=== PATIENT | female | born 1980 | race Caucasian/White ===

== ENCOUNTER 2020-08-05 09:14 | Inpatient (IN) ==
[2020-08-05 10:27] LABS: BUN/Creatinine Ratio 30 (6-26); Blood Urea Nitrogen 21 mg/dL (6-20); Calcium 8.9 mg/dL (8.6-10.3); Carbon Dioxide 28 mEq/L (23-29); Chloride 101 mEq/L (98-107); Creatine Kinase 17123 Units/L (30-223); Glucose 153 mg/dL (70-105); Osmolality,Calculated 286 (280-300); Potassium 4.2 mEq/L (3.5-5.1); Sodium 135 mEq/L (136-145); eGFR For African Americans > 60 (> 60); eGFR For Non-African Americans > 60 (> 60)
[2020-08-05] MEDS ORDERED: 0.9 % Sodium Chloride 1,000 ML IVC SCH (10:30)
[2020-08-05] MEDS: 0.9 % Sodium Chloride 1,000 ML IVC SCH ×5 (10:42→22:28)
[2020-08-05 11:03] LABS: Basophils # 0.1 K/mcL (0.0-0.2); Basophils % 0.6 %; Eosinophils # 0.2 K/mcL (0.0-0.6); Eosinophils % 2.8 %; Hemoglobin 12.4 g/dL (11.5-15.4); Immature Granulocytes % 0.7 % (0-4); Lymphocytes # 2.4 K/mcL (0.6-4.6); Lymphocytes % 27.6 %; Mean Corpuscular HGB Conc 32.6 g/dL (31.6-35.5); Mean Corpuscular Hemoglobin 28.4 pg (28.0-33.3); Mean Corpuscular Volume 87.2 fL (83.0-100.0); Mean Platelet Volume 9.7 fL (9.4-12.4); Monocytes # 0.5 K/mcL (0.0-1.3); Monocytes % 5.9 %; Neutrophils # 5.4 K/mcL (1.6-8.9); Platelet Count 290 K/mcL (140-400); Red Blood Count 4.36 M/mcL (3.82-4.97); Red Cell Distribution Width 13.2 % (11.5-14.5); Segmented Neutrophils % 62.4 %; White Blood Count 8.7 K/mcL (4.3-11.1)
[2020-08-05] MEDS ORDERED: Acetaminophen 325 MG TABLET PO ONE (11:04)
[2020-08-05] MEDS ORDERED: Naloxone 0.4 MG/ML INJ IVP PRN (11:44)
[2020-08-05] MEDS ORDERED: Melatonin 3 MG TABLET PO PRN (11:44)
[2020-08-05] MEDS ORDERED: Ondansetron 4 MG/2 ML VIAL IVP PRN (11:44)
[2020-08-05] MEDS ORDERED: MOM Conc 10 ML UD.LIQ PO PRN (11:44)
[2020-08-05] MEDS ORDERED: Mag Hydrox/Al Hydrox/Simeth 30 ML UDC PO PRN (11:44)
[2020-08-05 12:54] LABS: Albumin 3.7 g/dL (3.5-5.7); Albumin/Globulin Ratio 1.1 (1.1-2.2); Bilirubin,Direct 0.1 mg/dL (0.0-0.2); Bilirubin,Indirect 0.3 mg/dL (0.0-1.0); Bilirubin,Total 0.4 mg/dL (0.3-1.0); Globulin 3.3 g/dL (2.4-3.5)
[2020-08-05 16:44] LABS: Bilirubin,Urine Negative (Negative); Blood,Urine Large (Negative); Clarity,Urine Clear (Clear); Color,Urine Yellow (Yellow); Glucose,Urine (UA) Normal (Normal); Ketones,Urine Negative (Negative); Leukocyte Esterase,Urine Negative (Negative); Nitrite,Urine Negative (Negative); Protein,Urine Negative (Neg-Trace); Urobilinogen,Urine Normal (Normal)
[2020-08-05 16:55] LABS: RBC,Urine 0-3 per hpf (0-3)
[2020-08-05 16:56] LABS: Mucus,Urine Few per lpf (None-Few); Squamous Epithelial Cell,Urine Few per hpf (None-Few)
[2020-08-05] MEDS: Insulin LISPRO 300 UNITS/3 ML VIAL SUBQ SCH ×2 (17:32→21:16)
[2020-08-05] MEDS ORDERED: *HR* Dextrose 50 % in Water (Vial) 50 ML VIAL IVP PRN (18:22)
[2020-08-05] MEDS ORDERED: D5% in Water 1,000 ML IVC PRN (18:22)
[2020-08-05] MEDS ORDERED: Dextrose Gel 15 GM/37.5 ML TUBE PO PRN ×2 (18:22)
[2020-08-05] MEDS: *HR* HYDROcodone/Acet 5/325 mg TABLET PO PRN (22:34)
[2020-08-06] MEDS: 0.9 % Sodium Chloride 1,000 ML IVC SCH ×4 (03:04→21:46)
[2020-08-06 04:02] LABS: Basophils % 0.4 %; Eosinophils # 0.2 K/mcL (0.0-0.6); Eosinophils % 2.3 %; Hematocrit 35.5 % (35.3-44.9); Hemoglobin 11.6 g/dL (11.5-15.4); Immature Granulocytes % 0.4 % (0-4); Lymphocytes % 18.5 %; Mean Corpuscular HGB Conc 32.7 g/dL (31.6-35.5); Mean Corpuscular Volume 85.7 fL (83.0-100.0); Mean Platelet Volume 9.6 fL (9.4-12.4); Monocytes # 0.5 K/mcL (0.0-1.3); Monocytes % 4.3 %; Neutrophils # 7.9 K/mcL (1.6-8.9); Platelet Count 282 K/mcL (140-400); Red Blood Count 4.14 M/mcL (3.82-4.97); Red Cell Distribution Width 13.1 % (11.5-14.5); Segmented Neutrophils % 74.1 %; White Blood Count 10.6 K/mcL (4.3-11.1)
[2020-08-06 04:29] LABS: BUN/Creatinine Ratio 22 (6-26); Blood Urea Nitrogen 16 mg/dL (6-20); Calcium 8.4 mg/dL (8.6-10.3); Carbon Dioxide 26 mEq/L (23-29); Chloride 102 mEq/L (98-107); Glucose 163 mg/dL (70-105); Osmolality,Calculated 285 (280-300); Potassium 4.1 mEq/L (3.5-5.1); Sodium 135 mEq/L (136-145); eGFR For African Americans > 60 (> 60); eGFR For Non-African Americans > 60 (> 60)
[2020-08-06] MEDS: *HR* Enoxaparin 40 MG/0.4 ML SYRINGE SQ SCH (05:47)
[2020-08-06] MEDS: Acetaminophen 325 MG TABLET PO PRN (06:02)
[2020-08-06] MEDS: Insulin LISPRO 300 UNITS/3 ML VIAL SUBQ SCH ×4 (08:33→21:50)
[2020-08-06] MEDS: Metoprolol XL (24 HR) Succ 50 MG TAB.ER.24H PO SCH (08:34)
[2020-08-06] MEDS: FLUoxetine 20 MG CAPSULE PO SCH (08:34)
[2020-08-06] MEDS: *HR* Glimepiride 2 MG TABLET PO SCH ×2 (08:51→16:18)
[2020-08-06] MEDS: lisinopriL 20 MG TABLET PO SCH (10:35)
[2020-08-06] MEDS: OMEGA PO SCH (10:35)
[2020-08-06] MEDS: FATTY ACIDS PO SCH (10:35)
[2020-08-06] MEDS: *HR* Metformin 500 MG TABLET PO SCH ×2 (10:38→16:18)
[2020-08-07] MEDS: *HR* HYDROcodone/Acet 5/325 mg TABLET PO PRN ×2 (03:30→18:14)
[2020-08-07] MEDS: Acetaminophen 325 MG TABLET PO PRN (06:23)
[2020-08-07] MEDS: *HR* Enoxaparin 40 MG/0.4 ML SYRINGE SQ SCH (06:23)
[2020-08-07] MEDS: 0.9 % Sodium Chloride 1,000 ML IVC SCH ×5 (06:25→23:43)
[2020-08-07] MEDS: Insulin LISPRO 300 UNITS/3 ML VIAL SUBQ SCH ×4 (08:17→20:59)
[2020-08-07] MEDS: OMEGA PO SCH (08:24)
[2020-08-07] MEDS: lisinopriL 20 MG TABLET PO SCH (08:24)
[2020-08-07] MEDS: *HR* Metformin 500 MG TABLET PO SCH ×2 (08:24→17:52)
[2020-08-07] MEDS: FLUoxetine 20 MG CAPSULE PO SCH (08:24)
[2020-08-07] MEDS: *HR* Glimepiride 2 MG TABLET PO SCH ×2 (08:24→17:52)
[2020-08-07] MEDS: FATTY ACIDS PO SCH (08:24)
[2020-08-07] MEDS: Metoprolol XL (24 HR) Succ 50 MG TAB.ER.24H PO SCH (08:24)
[2020-08-07] MEDS ORDERED: lisinopriL 20 MG TABLET PO SCH (09:00)
[2020-08-07 09:50] LABS: BUN/Creatinine Ratio 21 (6-26); Blood Urea Nitrogen 13 mg/dL (6-20); Calcium 8.4 mg/dL (8.6-10.3); Carbon Dioxide 25 mEq/L (23-29); Chloride 104 mEq/L (98-107); Creatine Kinase 7805 Units/L (30-223); Glucose 96 mg/dL (70-105); Osmolality,Calculated 284 (280-300); Potassium 3.7 mEq/L (3.5-5.1); Sodium 137 mEq/L (136-145); eGFR For African Americans > 60 (> 60); eGFR For Non-African Americans > 60 (> 60)
[2020-08-07 09:52] LABS: Estimated Average Glucose 126 mg/dl
[2020-08-07] MEDS: diazePAM 5 MG TABLET PO PRN (20:58)
[2020-08-08] MEDS: *HR* HYDROcodone/Acet 5/325 mg TABLET PO PRN ×2 (04:13→13:48)
[2020-08-08] MEDS: 0.9 % Sodium Chloride 1,000 ML IVC SCH ×4 (04:48→16:42)
[2020-08-08] MEDS: *HR* Enoxaparin 40 MG/0.4 ML SYRINGE SQ SCH (05:09)
[2020-08-08] MEDS: Insulin LISPRO 300 UNITS/3 ML VIAL SUBQ SCH ×3 (08:06→16:34)
[2020-08-08 08:08] LABS: BUN/Creatinine Ratio 21 (6-26); Blood Urea Nitrogen 13 mg/dL (6-20); Calcium 8.1 mg/dL (8.6-10.3); Carbon Dioxide 24 mEq/L (23-29); Chloride 104 mEq/L (98-107); Creatine Kinase 2395 Units/L (30-223); Glucose 103 mg/dL (70-105); Osmolality,Calculated 282 (280-300); Potassium 3.8 mEq/L (3.5-5.1); Sodium 136 mEq/L (136-145); eGFR For African Americans > 60 (> 60); eGFR For Non-African Americans > 60 (> 60)
[2020-08-08] MEDS: *HR* Metformin 500 MG TABLET PO SCH ×2 (09:02→16:38)
[2020-08-08] MEDS: lisinopriL 20 MG TABLET PO SCH (09:02)
[2020-08-08] MEDS: *HR* Glimepiride 2 MG TABLET PO SCH ×2 (09:02→16:38)
[2020-08-08] MEDS: FLUoxetine 20 MG CAPSULE PO SCH (09:02)
[2020-08-08] MEDS: OMEGA PO SCH (09:03)
[2020-08-08] MEDS: FATTY ACIDS PO SCH (09:03)
[2020-08-08] MEDS: Metoprolol XL (24 HR) Succ 50 MG TAB.ER.24H PO SCH (09:03)
[2020-08-08] MEDS: diazePAM 5 MG TABLET PO PRN (09:07)
[2020-08-08 13:23] VITALS: BP 131/75
== END 2020-08-08 18:25 | disposition home or self-care (01) | DRG 565 ==
LOC: INPPIK 09:14 → EMEROOPIK 09:14 → INPPIK 12:58
PROVIDERS: ADMIT Family Medicine; ATTEND Family Medicine

== ENCOUNTER 2021-01-21 16:55 | Inpatient (IN) ==
[2021-01-21 17:56] LABS: Basophils % 0.2 %; Hematocrit 40.6 % (35.3-44.9); Hemoglobin 13.3 g/dL (11.5-15.4); Immature Granulocytes % 0.7 % (0-4); Lymphocytes # 0.6 K/mcL (0.6-4.6); Lymphocytes % 14.4 %; Mean Corpuscular HGB Conc 32.8 g/dL (31.6-35.5); Mean Corpuscular Hemoglobin 27.7 pg (28.0-33.3); Mean Corpuscular Volume 84.4 fL (83.0-100.0); Mean Platelet Volume 10.2 fL (9.4-12.4); Monocytes # 0.1 K/mcL (0.0-1.3); Monocytes % 2.8 %; Neutrophils # 3.5 K/mcL (1.6-8.9); Platelet Count 142 K/mcL (140-400); Red Blood Count 4.81 M/mcL (3.82-4.97); Red Cell Distribution Width 13.9 % (11.5-14.5); Segmented Neutrophils % 81.9 %; White Blood Count 4.3 K/mcL (4.3-11.1)
[2021-01-21 18:04] LABS: INR 1.2; Prothrombin Time 13.5 Seconds (9.4-12.1)
[2021-01-21 18:16] LABS: Alanine Aminotransferase 25 Units/L (7-52); Albumin 3.6 g/dL (3.5-5.7); Albumin/Globulin Ratio 0.9 (1.1-2.2); Alkaline Phosphatase 89 Units/L (34-104); Aspartate Amino Transferase 31 Units/L (13-39); BUN/Creatinine Ratio 18 (6-26); Bilirubin,Total 0.3 mg/dL (0.3-1.0); Blood Urea Nitrogen 16 mg/dL (6-20); Calcium 8.1 mg/dL (8.6-10.3); Carbon Dioxide 26 mEq/L (23-29); Chloride 100 mEq/L (98-107); Globulin 3.8 g/dL (2.4-3.5); Glucose 155 mg/dL (70-105); Osmolality,Calculated 284 (280-300); Sodium 135 mEq/L (136-145); Total Protein 7.4 g/dL (6.4-8.9); eGFR For African Americans > 60 (> 60); eGFR For Non-African Americans > 60 (> 60)
[2021-01-21] MEDS ORDERED: Mag Hydrox/Al Hydrox/Simeth 30 ML UDC PO PRN (18:50)
[2021-01-21] MEDS ORDERED: Naloxone 0.4 MG/ML INJ IVP PRN (18:50)
[2021-01-21] MEDS ORDERED: MOM Conc 10 ML UD.LIQ PO PRN (18:50)
[2021-01-21] MEDS ORDERED: *HR* Dextrose 50 % in Water (Vial) 50 ML VIAL IVP PRN (18:55)
[2021-01-21] MEDS ORDERED: Dextrose Gel 15 GM/37.5 ML TUBE PO PRN ×2 (18:55)
[2021-01-21] MEDS ORDERED: D5% in Water 1,000 ML IVC PRN (18:55)
[2021-01-21] MEDS ORDERED: Insulin LISPRO 300 UNITS/3 ML VIAL SUBQ SCH (21:00)
[2021-01-21 21:57] LABS: C-Reactive Protein 116 mg/L (Less than 10)
[2021-01-21 22:15] LABS: Ferritin 788 ng/mL (10-120)
[2021-01-21] MEDS: levoFLOXacin 750 MG/150 ML 750 MG/150 ML BAG IVPB SCH (23:22)
[2021-01-21] MEDS: Benzonatate 100 MG CAPSULE PO PRN (23:26)
[2021-01-21] MEDS: diazePAM 5 MG TABLET PO SCH (23:26)
[2021-01-21] MEDS: *HR* Glimepiride 2 MG TABLET PO SCH (23:26)
[2021-01-21] MEDS: Ondansetron 4 MG/2 ML VIAL IVP PRN (23:57)
[2021-01-22 04:21] LABS: Basophils % 0.2 %; Hematocrit 39.6 % (35.3-44.9); Immature Granulocytes % 0.6 % (0-4); Lymphocytes # 0.5 K/mcL (0.6-4.6); Mean Corpuscular HGB Conc 32.8 g/dL (31.6-35.5); Mean Corpuscular Hemoglobin 27.4 pg (28.0-33.3); Mean Corpuscular Volume 83.5 fL (83.0-100.0); Mean Platelet Volume 10.4 fL (9.4-12.4); Monocytes # 0.1 K/mcL (0.0-1.3); Monocytes % 1.8 %; Neutrophils # 4.8 K/mcL (1.6-8.9); Platelet Count 158 K/mcL (140-400); Red Blood Count 4.74 M/mcL (3.82-4.97); Red Cell Distribution Width 13.9 % (11.5-14.5); Segmented Neutrophils % 88.4 %; White Blood Count 5.4 K/mcL (4.3-11.1)
[2021-01-22 04:41] LABS: BUN/Creatinine Ratio 15 (6-26); Blood Urea Nitrogen 13 mg/dL (6-20); Calcium 7.9 mg/dL (8.6-10.3); Carbon Dioxide 24 mEq/L (23-29); Chloride 97 mEq/L (98-107); Glucose 242 mg/dL (70-105); Osmolality,Calculated 280 (280-300); Potassium 4.2 mEq/L (3.5-5.1); Sodium 131 mEq/L (136-145); eGFR For African Americans > 60 (> 60); eGFR For Non-African Americans > 60 (> 60)
[2021-01-22] MEDS ORDERED: *HR* Enoxaparin 40 MG/0.4 ML SYRINGE SQ SCH (06:00)
[2021-01-22 06:56] LABS: Platelet Estimate Normal (Normal)
[2021-01-22] MEDS ORDERED: Insulin LISPRO 300 UNITS/3 ML VIAL SUBQ SCH ×4 (07:30→21:00)
[2021-01-22] MEDS ORDERED: Metoprolol XL (24 HR) Succ 50 MG TAB.ER.24H PO SCH (09:00)
[2021-01-22] MEDS ORDERED: FLUoxetine 20 MG CAPSULE PO SCH (09:00)
[2021-01-22] MEDS ORDERED: lisinopriL 20 MG TABLET PO SCH (09:00)
[2021-01-22] MEDS: *HR* Glimepiride 2 MG TABLET PO SCH ×2 (09:20→20:23)
[2021-01-22] MEDS: diazePAM 5 MG TABLET PO SCH ×3 (09:20→20:23)
[2021-01-22] MEDS: levoFLOXacin 750 MG/150 ML 750 MG/150 ML BAG IVPB SCH (09:21)
[2021-01-22] MEDS: Acetaminophen 325 MG TABLET PO PRN ×2 (09:53→20:23)
[2021-01-22] MEDS ORDERED: Furosemide 40 MG/4 ML VIAL IVP ONE (10:22)
[2021-01-22] MEDS ORDERED: Remdesivir 200 MG in 0.9 % Sodium Chloride 100 ML IVPB ONE (14:03)
[2021-01-22] MEDS: Ondansetron 4 MG/2 ML VIAL IVP PRN (20:22)
[2021-01-22] MEDS: Benzonatate 100 MG CAPSULE PO PRN (20:22)
[2021-01-22] MEDS ORDERED: Furosemide 20 MG/2 ML VIAL IVP ONE (21:23)
[2021-01-23 02:39] VITALS: BP 137/66; PULSE 55; TEMP 97.8
[2021-01-23 04:14] VITALS: RESP 38; O2SAT 94
[2021-01-23] MEDS: Ondansetron 4 MG/2 ML VIAL IVP PRN (04:15)
[2021-01-23] MEDS: Benzonatate 100 MG CAPSULE PO PRN (04:27)
[2021-01-23] MEDS ORDERED: Remdesivir 100 MG in 0.9 % Sodium Chloride 100 ML IVPB SCH (14:00)
== END 2021-01-23 05:20 | disposition other institution (70) | DRG 177 ==
LOC: INPPIK 16:55 → EMEROOPIK 16:55 → INPPIK 21:19
PROVIDERS: ADMIT Internal Medicine; ATTEND Internal Medicine